=== PATIENT | male | born 1970 | race Caucasian/White ===

== ENCOUNTER → 2020-09-12 13:09 | Outpatient (BNVA) | payer MEDICAID, SELFPAY | PROVIDERS: PCP Internal Medicine Geriatric Medicine; Visit Provider Physician Assistant ==

== ENCOUNTER 2022-04-01 12:46 | Outpatient (REF) | payer MEDICAID, SELFPAY ==
--- NOTE | ~2022-04-01 | XR_ITS ---
EXAMINATION: XR LUMBOSACRAL SPINE CLINICAL INFORMATION: Lumbago with sciatica right side. COMPARISON: None TECHNIQUE: Three views of the lumbosacral spine. FINDINGS: The heights of the lumbar vertebrae are normal. The alignments are normal. Endplate osteophyte formation, endplate sclerosis, consistent with moderate spondylosis related changes are noted at L2-3. The posterior appendages are intact. The paraspinal soft tissues are unremarkable. XR/XR lumbar spine 2-3V IMPRESSION: Moderate spondylosis at L2-3.
== END 2022-04-01 12:47 | disposition home or self-care (01) ==
LOC: HO.LAB 12:46
PROVIDERS: PCP Internal Medicine Geriatric Medicine; Visit Provider Nurse Practitioner Family
DX: M54.41 Lumbago with sciatica, right side (principal)
CPT/HCPCS: 72100

== ENCOUNTER 2024-04-30 12:31 | Outpatient (REF) | payer MEDICAID, SELFPAY ==
[2024-04-30 13:24] LABS: MANUAL DIFF FLAG NO
[2024-04-30 13:31] LABS: Basophils Absolute Auto 0.1 X10*3/uL (0.0-0.2); Basophils Percent Auto 0.9 % (0-2); Eosinophils Absolute Auto 0.1 X10*3/uL (0.0-0.4); Eosinophils Percent Auto 0.9 % (0-4); Hematocrit 41.2 % (42.0-52.0); Hemoglobin 13.3 g/dl (14.0-18.0); Imm Gran Abs Auto 0.01 X10*3/uL (0.00-0.03); Imm Gran Pct Auto 0.2 % (0.0-0.4); Lymphocytes Absolute Auto 1.5 X10*3/uL (1.2-4.9); Lymphocytes Percent Auto 28.1 % (20-40); Mean Corpuscular HGB Conc 32.3 g/dl (31.0-36.0); Mean Corpuscular Hemoglobin 30.4 pg (27.0-33.0); Mean Corpuscular Volume 94.1 fL (80.0-98.0); Mean Platelet Volume 10.4 fL (9.4-12.4); Monocytes Absolute Auto 0.5 X10*3/uL (0.1-1.2); Monocytes Percent Auto 9.4 % (2-11); Neutrophils Absolute Auto 3.3 x10*3/uL (2.0-8.3); Neutrophils Percent Auto 60.5 % (45-73); Platelet Count 210 X10*3/uL (160-400); Red Blood Count 4.38 X10*6/uL (4.60-5.80); Red Cell Distribution Width 13.8 % (11.0-16.0); White Blood Count 5.4 X10*3/uL (4.8-10.8)
[2024-04-30 14:39] LABS: Alanine Aminotransferase 29 U/L (0-40); Albumin Level 4.2 g/dL (3.5-5.0); Alkaline Phosphatase 70 U/L (39-117); Anion Gap 10 (12-20); Aspartate Amino Transferase 30 U/L (5-37); Bilirubin Total 0.2 mg/dL (0.0-1.0); Blood Urea Nitrogen 18 mg/dL (9-16); Calcium 9.6 mg/dL (8.4-10.2); Carbon Dioxide 25 mmol/L (22-29); Chloride 109 mmol/L (96-108); Estimated Glomerular Filt Rate > 60; Glucose Random 94 mg/dL (60-115); Potassium 4.3 mmol/L (3.3-5.1); Sodium 140 mmol/L (135-145); TSH reflex Free T4 1.02 uIU/mL (0.32-4.0); Total Protein 7.6 g/dL (6.5-8.0)
[2024-05-01 07:51] LABS: HBc Num1 5.38 S/CO (0.00-0.79); HIV AB/AG Nonreactive (Nonreactive); HIV Num 1 0.07 S/CO (0.00-0.99); Hepatitis B Surface Antigen Negative (Negative); ~HepC Num1 14.29 S/CO (0.00-0.79); ~Hepatitis B Surface Antibody REACTIVE (Nonreactive); ~Hepatitis C Antibody Reactive (Nonreactive)
[2024-05-01 08:34] LABS: HBc Num2 5.47 S/CO
[2024-05-01 08:35] LABS: HBc Num3 5.64 S/CO; Hepatitis B Core Antibody Reactive (Nonreactive)
[2024-05-03 12:39] LABS: RPR Rapid Plasma Reagin NON-REACTIVE (NON-REACTIVE)
[2024-05-05 13:18] LABS: HCV Log PCR <1.18 NOT DETECTED Log IU/mL (NOT DETECTED); HepC Viral Load <15 NOT DETECTED IU/mL (NOT DETECTED)
== END 2024-04-30 12:32 | disposition home or self-care (01) ==
LOC: HO.HHCL 12:31
PROVIDERS: Visit Provider General Practice
DX: R10.12 Left upper quadrant pain (principal)
CPT/HCPCS: 36415; 80053; 84443; 85025; 86592; 86704; 86706; 86803; 87340; 87389; 87522

== ENCOUNTER 2024-10-15 11:16 | Outpatient (REF) | payer MEDICAID, SELFPAY ==
--- OUTSIDE RECORDS SUMMARY | 2024-10-15 12:23 | XMS_ITS | Encounter Summary ---
Author Organization [employer] Address [address] [facility] [address] [place] [address] Care Team Providers Care Aquatic Centre Manager Name Role Phone Name, Carlo KHAN Primary Care Provider [phone] Reason for Visit * Reason Onset Date Comments Nurse Triage 04/12/2024 Encounter Details Date Type Department Care Team (Late st Contact Info) Description 04/12/2024 Telephone [facility] MED[facility] [address] [place], [place] [phone] Name, MD Carlo [address] [place] [address] Nurse Triage Social History Tobacco Use Types Packs/Day Years Used Date Smoking Tobacco: Never Assessed Sex and Gender Information Value Date Recorded Sex Assigned at Male 06/24/2022 10:17 AM EDT Legal Sex Male 10:17 AM EDT Gender Identity Male 06/24/2022 10:17 AM EDT Sexual Orientation Choose not to disclose 2021 10:17 AM EDT documented as of this encounter Miscellaneous Notes * Telephone Encounter - Tash Gudino RN - 04/12/2024 4:15 PM EDT Triage call Pt reports chronic left sided abdominal pain under the rib area. Pt reports it went away for awhile and now it has come back and is on and off. Pt denies vomiting, fever, constipation, blood in urine, heart burn. Pt reports is in the methadone clinic and is trying to get finished with that. Pt reports , I'm scared that this pain coming back is from all the hard living I did before. Pt also reports that there is some numbness in right leg from foot to knee which comes and goes . Pt reports has changed diet eats fresh fruits and vegetables. Drinks adequate liquids but, did drink a couple of beers the other night and didn't feel well after. Pt is given ASK apt with INTERACTIVE MEDIA DIRECTOR Felipe 04/19/24 @ 100pm . Pt agrees with this disposition and will go to the ED if these symptoms become worse prior to scheduled apt. Home care reviewed. Insurance is verified as active prior to booking. Protocol Used: Abdominal Pain - Male (Adult) Protocol-Based Disposition: Home Care Positive Triage Question: * Mild abdominal pain * All higher-acuity triage questions were negative Care Advice Discussed: * Reassurance and Education - Stomach Pain * Rest * Drink Clear Fluids * Diet * Pass a Stool * Avoid Aspirin and NSAIDs * Expected Course - Abdomen Pain * Reasons To Call Back - Severe pain lasts over 1 hour - Intermittent pains (e.g., comes and goes, cramps) lasts over 48 hours - You become worse * Telephone Encounter - Cash Shelby - 04/12/2024 3:26 PM EDT Symptom: Abdominal Pain - Male Outcome: Schedule an urgent appointment (within 4 hours) or talk to a nurse or provider soon Reason: Getting worse The caller accepted this outcome documented in this encounter Plan of Treatment Upcoming Encounters Date Type Department Care Team (Late st Contact Info) Description 11/02/2024 1:30 PM EDT Office Visit [facility] ADULT DENTAL [address] [place] [address] Ilir Reed DDS [address] [place] [address] 12/24/2024 11:00 AM EDT Office Visit [facility] MED[facility]INE [address] [place] [address] Carlo Rawls MD [address] [place] [address] documented as of this encounter Visit Diagnoses Not on filedocumented in this encounter Care Teams Aquatic Centre Manager Relationship Specialty Start Date End Date NameCarlo MD [address] [place] [phone] PCP - General Family Medicine 12/12/15 documented as of this encounter
--- OUTSIDE RECORDS SUMMARY | 2024-10-15 12:24 | XMS_ITS | Encounter Summary ---
Author Organization [employer] Address [address] [place] [address] [address] [place] [address] Care Team Providers Care Embroiderer Name Role Phone Name, Carlo KHAN Primary Care Provider [phone] Reason for Visit * Reason Comments Extraction #18 Encounter Details Date Type Department Care Team (Late st Contact Info) Description 09/17/2024 2:30 PM EST Office Visit [facility] ADULT DENTAL [address] [place] [address] Ilir Reed DDS [address] [place], [place] [phone] Chronic right-sided low back pain with right-sided sciatica Social History Tobacco Use Types Packs/Day Years Used Date Smoking Tobacco: Never Smokeless Tobacco: Never Alcohol Use Standard Drinks/Week Comments Never 0 (1 standard drink = 0.6 oz pur e alcohol) Sex and Gender Information Value Date Recorded Sex Assigned at Male 06/24/2022 10:17 AM EDT Legal Sex Male 10:17 AM EDT Gender Identity Male 06/24/2022 10:17 AM EDT Sexual Orientation Choose not to disclose 2021 10:17 AM EDT documented as of this encounter Last Filed Vital Signs Vital Sign Reading Time Taken Comments Blood Pressure 132/72 09/17/2024 2:41 PM EST Pulse - - Temperature - - Respiratory Rate - - Oxygen Saturation - - Inhaled Oxygen Concentration - - Weight - - Height - - Body Mass Index - - documented in this encounter Progress Notes * Ilir Reed DDS - 09/17/2024 2:30 PM EST Patient ID: Gucci Sanchez is a 53 y.o. male. Time Out: No data recorded Location: [facility] Tooth: #18 Procedure: Extraction Verified the above with patient, phlebotomist medical lab assistant, and provider. Confirmed via patient's chart, intraorally and by radiographs. Machine Stamper: not applicable Chief Complaint Patient presents with Extraction #18 Medical Hx: Vitals: Blood pressure 132/72. Past Medical History: Diagnosis Date Asthma Hepatitis C Medications: Outpatient Encounter Medications as of 09/17/2024 Medication Sig Dispense Refill albuterol (2.5 MG/3ML) 0.083% nebulizer solution INHALE 1 VIAL VIA NEBULIZER 3 TIMES A DAY 90 mL 2 albuterol (Ventolin HFA) 108 (90 Base) MCG/ACT inhaler INHALE 2 PUFFS INTO THE LUNGS EVERY 4 TO 6 HOURS NEEDED. 18 g 1 albuterol 108 (90 Base) MCG/ACT inhaler Inhale 2 puffs every 6 (six) hours if needed for wheezing. 18 g 11 [DISCONTINUED] ibuprofen 800 MG tablet Take 1 tablet (800 mg) by mouth every 8 (eight) hours if needed for mild pain or moderate pain. 30 tablet 1 amoxicillin (Amoxil) 500 MG capsule Take 1 capsule (500 mg) by mouth every 8 (eight) hours for 7 days. 21 capsule 0 [] cyclobenzaprine (Flexeril) 5 MG tablet Take 1 tablet (5 mg) by mouth if needed in the morning, at noon, and at bedtime for muscle spasms for up to 10 days. 30 tablet 0 ibuprofen 600 MG tablet Take 1 tablet (600 mg) by mouth 3 times daily for 7 days. 21 tablet 0 methadone (Methadose) 10 MG/ML solution 41 mg. naproxen (Naprosyn) 500 MG tablet Take 500 mg by mouth if needed in the morning and at bedtime. No facility-administered encounter medications on file as of 09/17/2024. Consent Obtained: The risks, benefits, indications, potential complications, and alternatives were explained to the patient and informed consent was obtained with good understanding. Treatment Provided: Dental procedures in this visit D7140 - EXTRACTION, ERUPTED TOOTH OR EXPOSED ROOT (ELEVATION AND/OR FORCEPS REMOVAL) 18 (Completed) Service provider: Ilir Reed DDS Billing provider: Ilir Reed DDS [id number] - ADJUNCTIVE GENERAL SERVICES - PROFESSIONAL VISITS - CASE PRESENTATION, SUBSEQUENT TO DETAILED AND EXTENSIVE TREATMENT PLANNING (Completed) Service provider: Ilir Reed DDS Billing provider: Ilir Reed DDS Diagnosis: Periodontal abscess Topical: 20% Benzocaine Anesthesia: 2% Lidocaine (Xylocaine) w/ 1:100,000 epinephrine Number of Cartridges: 1 Injection Type: Inferior alveolar nerve block and Long buccal nerve block Confirmed profound anesthesia. Pharyngeal curtain and bite block placed. Removed tooth with elevators and forceps. Apices intact. Surgical Extraction: N/A Socket curetted & irrigated with sterile water. Compressed alveolar bone. Sutures: None Needed All adjacent teeth intact. Hemostasis achieved. Complications: None Written and verbal post-op instructions given. Patient discharged in stable condition; ambulatory, alert, and oriented. A white patch was observed on the buccal mucosa adjacent to the left maxillary molars. Given the patient's history of smoking, a referral was made to Dr. Palomino for further evaluation. Patient was insistent on taking his extracted tooth with him after the procedure. It was explained to the patient that clinic policies, based on OSHA regulations, classify extractedteeth as potentially infectious material and, in this case, as medical waste due to the presence ofan amalgam (mercury) filling. Despite this explanation, the patient expressed dissatisfaction and left the operatory upset. At the front end application developer, the patient expressed mixed feedback about his visit. While he appreciated the care provided, he stated he was unhappy about not being allowed to take the extracted tooth. He mentioned that had he known this policy beforehand, he would have opted to go to another dental office that permits patients to keep their extracted teeth. Shortly after leaving, the patient called the office and was transferred to ne. During our phone conversation, he continued to express frustration, insisting that the tooth was his body part and thatwe had no right to keep it. I apologized for the inconvenience and explained that our policy, guided by OSHA regulations, prevents us from releasing extracted teeth, especially those containing mercury, as they are classified as medical waste. After a lengthy discussion, the patient eventually acknowledged our reasoning but remained upset. He stated he would not return to our office for future extractions due to this experience. The patient was provided with a clear explanation of the policy and regulations regarding extracted teeth. Apologies were extended to the patient to address his dissatisfaction. Verbal acknowledgment of understanding was obtained, though the patient remained unhappy. NV: Exam Multiple Cut Off Saw Operator: Mami Colin Dentist: Ilir Reed DDS documented in this encounter Plan of Treatment Upcoming Encounters Date Type Department Care Team (Late st Contact Info) Description 11/02/2024 1:30 PM EDT Office Visit [facility] ADULT DENTAL [address] [place] [phone] Ilir Reed DDS [address] [place] [address] 12/24/2024 11:00 AM EDT Office Visit [facility] MEDICINE [address] [place] [phone] Name, MD Carlo [address] [place] [phone] Scheduled Orders Name Type Priority Associated Diagnoses Orde r Schedule COMPREHENSIVE ORAL EVALUATION - NEW OR ESTABLISHED PATIENT Dental Routine 1 Occurrence s starting 09/17/2024 DIAGNOSTIC - DIAGNOSTIC IMAGING - INTRAORAL - COMPREHENSIVE SERIES OF RADIOGRAPHIC IMAGES Dental Routine 1 Occurrence s starting 09/17/2024 UL UL PERIODONTAL SCALING AND ROOT PLANING - 1 TO 3 TEETH PER QUADRANT Dental Routine 1 Occurrences starting 09/17/2024 UR UR PERIODONTAL SCALING AND ROOT PLANING - 1 TO 3 TEETH PER QUADRANT Dental Routine 1 Occurrences starting 09/17/2024 LL LL PERIODONTAL SCALING AND ROOT PLANING - 1 TO 3 TEETH PER QUADRANT Dental Routine 1 Occurrences starting 09/17/2024 LR LR PERIODONTAL SCALING AND ROOT PLANING - 1 TO 3 TEETH PER QUADRANT Dental Routine 1 Occurrences starting 09/17/2024 documented as of this encounter Procedures Procedure Name Priority Date/Time Associated Diagnosis Comments 18 EXTRACTION, ERUPTED TOOTH OR EXPOSED ROOT (ELEVATION/FORCEPS REMOVAL) Routine 09/17/2024 2:30 PM EST CASE PRESENTATION, DETAILED AND EXTENSIVE TREATMENT PLANNING Routine 09/17/2024 2:30 PM EST documented in this encounter Visit Diagnoses Diagnosis Chronic right-sided low back pain with right-sided sciatica documented in this encounter Care Teams Embroiderer Relationship Specialty Start Date End Date Name, MD Carlo [address] [place] [phone] PCP - General Family Medicine 12/12/15 documented as of this encounter
--- OUTSIDE RECORDS SUMMARY | 2024-10-15 12:24 | XMS_ITS | Clinical Summary ---
Author Organization [facility] Address [address] [place] [address] Phone Care Team Providers Care Manager Clinic Name Role Phone Name, Carlo KHAN Primary Care Provider [phone] Allergies No known active allergies Medications albuterol HFA (PROAIR HFA ; PROVENTIL HFA ; VENTOLIN HFA) 90 mcg/actuation inhaler Inhale 2 puffs by mouth every 6 (six) hours if needed for wheezing. Active dexAMETHasone (DECADRON) 4 mg tablet Take 1 tablet (4 mg total) by mouth 2 (two) times a day for 10 days. 20 each 08/05/2024 Active methocarbamoL (ROBAXIN) 750 mg tablet Take 1 tablet (750 mg total) by mouth 4 (four) times a day for 10 days. 40 each 08/05/2024 Active Encounters Date Type Department Care Team Description 08/05/2024 8:23 AM EST - 08/05/2024 11:01 AM EST Emergency [facility] Emergency [address] [place] [address] Acute right lumbar radiculopathy (Primary Dx) Discharge Disposition: Home or Self Care from Last 3 Months Social History Tobacco Use Types Packs/Day Years Used Date Smoking Tobacco: Some Days Cigarettes Smokeless Tobacco: Never Tobacco Cessation:Ready to Q uit: Not Asked; Counseling Given: Not Answered Alcohol Use Standard Drinks/Week Comments Never 0 (1 standard drink = 0.6 oz pur e alcohol) Sex and Gender Information Value Date Recorded Sex Assigned at Male 08/05/2024 9:22 AM EST Legal Sex Male 12:19 AM EST Gender Identity Male 08/05/2024 9:22 AM EST Sexual Orientation Straight 08/05/2024 9: 22 AM EST Obstetrics History Last Filed Vital Signs Vital Sign Reading Time Taken Comments Blood Pressure 134/69 08/05/2024 7:34 AM EST keeps moving d/t pain Pulse 55 08/05/2024 7:34 AM EST Temperature 36.5 ??C (97.7 ??F) 08/05/2024 7 :34 AM EST Respiratory Rate 18 08/05/2024 7:34 AM EST Oxygen Saturation 99% 08/05/2024 7:3 4 AM EST Inhaled Oxygen Concentration - - Weight 74.8 kg (165 lb) 08/05/2024 7:34 AM EST Height 182.9 cm (6') 08/05/2024 7:34 AM EST Body Mass Index 22.38 08/05/2024 7:34 AM EST Plan of Treatment Health Maintenance Due Date Last Done Comments Hepatitis A Vaccines (1 of 2 - Risk 2-dose series) 1989 Hepatitis B Vaccines (1 of 3 - 19+ 3-dose series) 1989 Pneumococcal Vaccine: 50+ Years (1 of 2 - PCV) 1989 Pneumococcal Vaccine: Pediatrics (0 to 5 Years) and At-Risk Patients (6 to 64 Years) (1 of 2 - PCV) 1989 Zoster Vaccines (1 of 2) 2020 Colorectal Cancer Screening: Colonoscopy 09/23/2023 Depression Screening 09/23/2023 Social Influencers of Health Screening 09/23/2023 COVID-19 Vaccine (1 - 2023-2 5 season) 2024 Influenza Vaccine (#1) 2024 07/29/2013 Cholesterol Screening (Lipid Panel) 11/23/2027 11/22/2022 DTaP,Tdap,and Td Vaccines (3 - Td or Tdap) 06/17/2034 06/17/2024, 07/29/2013 MMR Vaccines Aged Out 11/24/2003 No longer eligi ble based on patient's age to complete this topic HIV Screening Completed 04/30/2024 Hepatitis C Screening Completed 04/30/2024 HIB Vaccines Aged Out No longer eligi ble based on patient's age to complete this topic HPV Vaccines Aged Out No longer eligi ble based on patient's age to complete this topic IPV Vaccines Aged Out No longer eligi ble based on patient's age to complete this topic Meningococcal ACWY Vaccine Aged Out N o longer eligible based on patient's age to complete this topic Meningococcal B Vacine Aged Out No lo nger eligible based on patient's age to complete this topic RSV Immunization Patients Under 20 months Aged Out No longer eligible b ased on patient's age to complete this topic Varicella Vaccines Aged Out No longer eligible based on patient's age to complete this topic Procedures Procedure Name Priority Date/Time Associated Diagnosis Comments XR LUMBAR SPINE 2-3 VIEWS STAT 08/05/2024 8:21 AM EST from Last 3 Months Results * XR Lumbar Spine 2-3 Views (08/05/2024 8:21 AM EST) Anatomical Region Laterality Modality Spine, L-spine Radiographic Brianna ging 08/05/2024 8:23 AM EST Impressions 08/05/2024 8:23 AM EST No acute deformity. ??Alignment is maintained. ??Mild degenerative changes are noted throughout the spine. ??Degenerative changes of the posterior facets. -------- FINAL REPORT -------- Dictated By: Waqar Pinto Dictated Date: 08/05/2024 08:23 ET Assigned Physician: Waqar Pinto Reviewed and Electronically Signed By: Waqar Pinto Signed Date: 08/05/2024 08:23 ET Workstation ID: [id number] Transcribed By: Self Edit Transcribed Date: 08/05/2024 08:23 ET Narrative 08/05/2024 8:23 AM EST PROCEDURE: XR LUMBAR SPINE 2-3 VIEWS INDICATION: pain COMPARISON: None Procedure Note Waqar Pinto MD - 08/05/2024 PROCEDURE: XR LUMBAR SPINE 2-3 VIEWS INDICATION: pain COMPARISON: None IMPRESSION: No acute deformity. Alignment is maintained. Mild degenerative changesare noted throughout the spine. Degenerative changes of the posteriorfacets. -------- FINAL REPORT -------- Dictated By: Waqar Pinto Dictated Date: 08/05/2024 08:23 ET Assigned Physician: Waqar Pinto Reviewed and Electronically Signed By: Waqar Pinto Signed Date: 08/05/2024 08:23 ET Workstation ID: [id number] Transcribed By: Self Edit Transcribed Date: 08/05/2024 08:23 ET us Stuart Roberson DO IMG XR PROCEDURES Final Res ult from Last 3 Months Insurance MEDICAID - [place] Care Teams Manager Clinic Relationship Specialty Start Date End Date Name, MD Carlo [address] [place] [phone] PCP - General Internal Medicine 08/05/24
--- OUTSIDE RECORDS SUMMARY | 2024-10-15 12:24 | XMS_ITS | Encounter Summary ---
Author Organization [employer] Address [address] [facility] [address] [place] [address] Care Team Providers Care Branch Operation Evaluation Manager Name Role Phone Carlo Rawls MD Primary Care Provider [phone] Reason for Referral * Neurology (Routine) - Authorized Specialty Diagnoses / Procedures Referred By Contac t Referred To Contact Diagnoses Radicular syndrome of right leg Procedures Nerve conduction test NameCarlo MD [address] [place] [address] Phone: tel: fax: [address] Phone: tel: fax: Referral ID Status Reason Start Date Expiration Date V isits Requested Visits Authorized [id number] Authorized 10/01/2024 10/01/2025 1 1 Reason for Visit * Reason Comments Annual Exam Encounter Details Date Type Department Care Team (Late st Contact Info) Description 10/01/2024 10:30 AM EST Office Visit [facility] MEDICINE [address] [place] [address] Carlo Rawls MD [address] [place] [address] Weight loss (Primary Dx); Tobacco dependence syndrome; Radicular syndrome of right leg Social History Tobacco Use Types Packs/Day Years Used Date Smoking Tobacco: Former Cigarettes Smokeless Tobacco: Never Tobacco Cessation:Counseling Given: Not Answered Alcohol Use Standard Drinks/Week Comments Never 0 (1 standard drink = 0.6 oz pur e alcohol) Depression Answer Date Recorded Patient Health Questionnaire-9 Score 9 10/01/2024 Patient Health Questionnaire-9 Score 9 10/01/2024 Last PHQ-9: Questionnaire Data Not on file 0 10/01/2024 Housing Stability Answer Date Recorded What is your housing situation today? I have mickey gallego 10/01/[address] you li ve. Do you have problems with any of the following? None of the above 10/01/2024 Food Insecurity Answer Date Recorded Within the past 12 months, y ou worried that your food would run out before you got money to buy more: Never True 10/01/2024 Within the past 12 months,th e food you bought just didn't last and you didn't have enough money to get more: Never True 02/2025 Transportation Answer Date Recorded In the past 12 months, has l ack of transportation kept you from medical appts, meetings, work or from getting things needed for daily living? No 10/01/2024 Utilities Answer Date Recorded In the past 12 months, has t he electric, gas, oil or water company threatened to shut off services in your home? No 10/01/2024 Depression Answer Date Recorded Patient Health Questionnaire-2 Score 4 10/01/2024 Internet Access Answer Date Recorded Internet Access Q1 No 10/01/2024 Internet Access Q2 I do not want or need it 02/2025 Sex and Gender Information Value Date Recorded Sex Assigned at Male 06/24/2022 10:17 AM EDT Legal Sex Male 10:17 AM EDT Gender Identity Male 06/24/2022 10:17 AM EDT Sexual Orientation Choose not to disclose 2021 10:17 AM EDT documented as of this encounter Last Filed Vital Signs Vital Sign Reading Time Taken Comments Blood Pressure 137/83 10/01/2024 10:34 AM EST Pulse 61 10/01/2024 10:34 AM EST Temperature 35.8 ??C (96.4 ??F) 10/01/2024 10:[address] Respiratory Rate 20 10/01/2024 10:34 AM EST Oxygen Saturation 98% 10/01/2024 10:34 AM EST Inhaled Oxygen Concentration - - Weight 74.4 kg (164 lb) 10/01/2024 10:34 AM EST Height 182.9 cm (6') 10/01/2024 10:34 AM EST Body Mass Index 22.24 10/01/2024 10:34 AM EST documented in this encounter Progress Notes * Carlo Rawls, - 10/01/2024 10:30 AM EST Subjective Patient ID: Gucci Sanchez is a 53 y.o. male who presents for Follow-up. Gucci is returning to medical care. I have not seen him in a couple of years. The patient continueson treatment with methadone and he smokes cigarettes. He denies use of alcohol or illicits. Today he is concerned about weight loss. The patient is 164 pounds. His weight is stable compared to his previous visit last year. He used to be 190 pounds about 3 years ago. The patient explains to me that he has changed his diet. He tries to avoid processed foods. He tries to eat organic foods but admitsthat is difficult because it is quite expensive. The patient tells me that he is having several months of low back pain with radiation to the right leg. He describes associated pain, paresthesias, numbness of the right leg and right foot. He does not have any recent trauma to the low back. No associated GI or complaints. No recent use of IVDA.No fevers or chills. No history of malignancy. Review of Systems Constitutional: Positive for unexpected weight change. Negative for chills, fatigue and fever. HENT: Negative for sore throat. Respiratory: Negative for cough, chest tightness and shortness of breath. Cardiovascular: Negative for chest pain, palpitations and leg swelling. Gastrointestinal: Negative for abdominal pain and blood in stool. Musculoskeletal: Positive for back pain. Visit Vitals BP 137/83 (BP Location: Left arm, Patient Position: Sitting, BP Cuff Size: Adult) Pulse 61 Temp 96.4 ??F (35.8 ??C) (Temporal) Resp 20 Ht 6' (1.829 m) Wt 164 lb (74.4 kg) SpO2 98% BMI 22.24 kg/m?? Smoking Status Former BSA 1.94 m?? Objective Physical Exam Constitutional: Appearance: Normal appearance. Cardiovascular: Rate and Rhythm: Normal rate and regular rhythm. Heart sounds: No murmur heard. Pulmonary: Effort: Pulmonary effort is normal. No respiratory distress. Breath sounds: No wheezing, rhonchi or rales. Abdominal: Palpations: Abdomen is soft. Tenderness: There is no abdominal tenderness. Musculoskeletal: Right lower leg: No edema. Left lower leg: No edema. Neurological: General: No focal deficit present. Mental Status: He is alert. Motor: No weakness. Assessment/Plan Diagnoses and all orders for this visit: Weight loss Comments: I recommended evaluation with testing listed below. Including blood work and chest x-ray. Orders: - CBC auto differential; Future - Comprehensive Metabolic Panel; Future - TSH W/Reflex to FT4; Future - HIV-1/2 Antigen and Antibodies, Fourth Generation, with Reflexes; Future - Hepatitis C Viral RNA, Quantitative, Real-Time PCR; Future - XR Chest 2 Views; Future Tobacco dependence syndrome Comments: See above Orders: - XR Chest 2 Views; Future Radicular syndrome of right leg Comments: I recommended 100 mg gabapentin at bedtime. Check nerve conduction study. Orders: - Nerve conduction test; Future Other orders - gabapentin (Neurontin) 100 MG capsule; Take 1 capsule (100 mg) by mouth at bedtime. documented in this encounter Plan of Treatment Upcoming Encounters Date Type Department Care Team (Late st Contact Info) Description 11/02/2024 1:30 PM EDT Office Visit [facility] ADULT DENTAL [address] [place] [address] Ilir Reed DDS [address] [place] [address] 12/24/2024 11:00 AM EDT Office Visit [facility] MEDICINE [address] [place] [address] Carlo Rawls MD [address] [place] [address] Scheduled Orders Name Type Priority Associated Diagnoses Orde r Schedule CBC auto differential Lab Routine Weight loss Expected: 10/01/2024 (Approximate), Expires: 10/01/2025 Comprehensive Metabolic Panel Lab Routine Weight loss Expected: 10/01/2024 (Approximate), Expires: 10/01/2025 TSH W/Reflex to FT4 Lab Routine Weight loss Expected: 10/01/2024 (Approximate), Expires: 10/01/2025 HIV-1/2 Antigen and Antibodies, Fourth Generation, with Reflexes Lab Routine Weight loss Expected: 10/01/2024 (Approximate), Expires: 10/01/2025 Hepatitis C Viral RNA, Quantitative, Real-Time PCR Lab Routine Weight loss Expected: 10/01/2024 (Approximate), Expires: 10/01/2025 Nerve conduction test Neurology Routine Radicular syndrome of right leg Expected: 10/01/2024 (Approximate), Expires: 10/01/2025 XR Chest 2 Views Imaging Routine Weight loss Tobacco dependence syndrome Expected: 10/01/2024, Expires: 10/01/2025 documented as of this encounter Visit Diagnoses Diagnosis Weight loss- Primary Loss of weight Tobacco dependence syndrome Tobacco use disorder Radicular syndrome of right leg documented in this encounter Additional Health Concerns Assessment Noted Time PHQ-9 Depression Total Score: 9 10/01/19 25 10:43 AM EST documented as of this encounter Care Teams Branch Operation Evaluation Manager Relationship Specialty Start Date End Date Name, MD Carlo [address] [place] [address] PCP - General Family Medicine 12/12/15 documented as of this encounter
--- OUTSIDE RECORDS SUMMARY | 2024-10-15 12:24 | XMS_ITS | Encounter Summary ---
Author Organization [employer] Address [address] [place] [address] [address] [place] [address] Care Team Providers Care Retail Custodial Associate Name Role Phone Name, Carlo KHAN Primary Care Provider [phone] Reason for Visit * Reason Comments Consult Encounter Details Date Type Department Care Team (Late st Contact Info) Description 09/29/2024 11:00 AM EST Office Visit 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 ADULT DENTAL [address] [place] [address] Ilir Reed DDS [address] [place] [address] 12/24/2024 11:00 AM EDT Office Visit [facility] MEDICINE [address] [place] [address] NameCarlo MD [address] [place] [phone] documented as of this encounter Procedures Procedure Name Priority Date/Time Associated Diagnosis Comments CONSULTATION - DIAGNOSTIC SERVICE PROVIDED BY DENTIST OR PHYSICIAN OTHER THAN REQUESTING DENTIST OR PHYSICIAN Routine 09/29/2024 11:00 AM EST documented in this encounter Visit Diagnoses Not on filedocumented in this encounter Care Teams Retail Custodial Associate Relationship Specialty Start Date End Date Carlo Rawls MD [address] [place] [phone] PCP - General Family Medicine 12/12/15 documented as of this encounter
--- OUTSIDE RECORDS SUMMARY | 2024-10-15 12:24 | XMS_ITS | Encounter Summary ---
Author Organization [employer] Address [address] [place] [address] [address] [place] [address] Care Team Providers Care Pipe Recovery Specialist Name Role Phone Name, Carlo KHAN Primary Care Provider [phone] Reason for Visit * Reason Onset Date Comments Medication Question 02/17/2024 Encounter Details Date Type Department Care Team ([facility] st Contact Info) Description 02/17/2024 Telephone [facility] MEDICINE [address] [place], [place] [phone] Name, MD Carlo [address] [place], [place] [phone] Medication Question Social History Tobacco Use Types Packs/Day Years Used Date Smoking Tobacco: Never Assessed Sex and Gender Information Value Date Recorded Sex Assigned at Male 06/24/2022 10:17 AM EDT Legal Sex Male 10:17 AM EDT Gender Identity Male 06/24/2022 10:17 AM EDT Sexual Orientation Choose not to disclose 2021 10:17 AM EDT documented as of this encounter Miscellaneous Notes * Telephone Encounter - Maritza Dennison RN - 02/17/2024 4:46 PM EDT T/C to pt. For below message, No answer. LVM to call back on [phone]. * Telephone Encounter - Eliot Pearce - 02/17/2024 3:32 PM EDT Tc from pt is requesting albuterol nebulizer solution for machine due to some recent concerns. Please contact pt at [phone]. documented in this encounter Plan of Treatment Upcoming Encounters Date Type Department Care Team (Late st Contact Info) Description 11/02/2024 1:30 PM EDT Office Visit [facility] ADULT DENTAL [address] [place] [address] Ilir Reed DDS [address] [place] [address] 12/24/2024 11:00 AM EDT Office Visit [facility] MED[facility]INE [address] [place] [address] Name, MD Carlo [address] [place] [address] documented as of this encounter Visit Diagnoses Not on filedocumented in this encounter Care Teams Pipe Recovery Specialist Relationship Specialty Start Date End Date Name, MD Carlo [address] [place] [address] PCP - General Family Medicine 12/12/15 documented as of this encounter
--- OUTSIDE RECORDS SUMMARY | 2024-10-15 12:24 | XMS_ITS | Encounter Summary ---
Author Organization [employer] Address [address] [facility] [address] [place] [address] Care Team Providers Care Security And Compliance Analyst Name Role Phone Name, Carlo KHAN Primary Care Provider [phone] Reason for Visit * Reason Onset Date Comments Chart Prep 09/30/2024 Encounter Details Date Type Department Care Team (Late st Contact Info) Description 09/30/2024 Telephone [facility] [address] [place], [place] [phone] Name, MD Carlo [address] [place] [address] Chart Prep Social History Tobacco Use Types Packs/Day Years [...] encounter Miscellaneous Notes * Telephone Encounter - Meron Nur MA - 09/30/2024 2:42 PM EST Chart Prep Labs: done Images: done Vaccines due: Covid Due, Hep A Due, Hep B Due, PCV20 Due, Flu Due, and Shingles in pharmacy Due Referrals: Completed Screenings: Colonoscopy Overdue care gaps: Sbirt, SDOH, and PHQ-9 documented in this encounter Plan of Treatment Upcoming Encounters Date Type Department Care Team (Late st Contact Info) Description 11/02/2024 1:30 PM EDT Office Visit [facility] ADULT DENTAL [address] [place] [address] Ilir Reed DDS [address] [place] [address] 12/24/2024 11:00 AM EDT Office Visit [facility] MEDICINE [address] [place] [phone] NameCarlo MD [address] [place] [phone] documented as of this encounter Visit Diagnoses Not on filedocumented in this encounter Care Teams Security And Compliance Analyst Relationship Specialty Start Date End Date Name, MD Carlo [address] [place] [phone] PCP - General Family Medicine 12/12/15 documented as of this encounter
--- OUTSIDE RECORDS SUMMARY | 2024-10-15 12:24 | XMS_ITS | Clinical Summary ---
Author Organization [employer] Address [address] [place] [address] 7t [place] [address] Care Team Providers Care Machine Cloth Measurer Name Role Phone Name, Carlo KHAN Primary Care Provider [phone] Allergies No known active allergies Medications albuterol (2.5 MG/3ML) 0.083% nebulizer solution INHALE 1 VIAL VIA NEBULIZER 3 TIMES A DAY 90 mL 2 02/19/20 24 Active methadone (Methadose) 10 MG/ML solution 41 mg. 03/25/20 22 Active naproxen (Naprosyn) 500 MG tablet Take 500 mg by mouth if needed in the morning and at bedtime. 07/18/20 23 Active albuterol (Ventolin HFA) 108 (90 Base) MCG/ACT inhalerIndicati ons:Asthma, unspecified asthma severity, unspecified whether complicated, unspecified whether persistent INHALE 2 PUFFS INTO THE LUNGS EVERY 4 TO 6 HOURS NEEDED. 18 g 1 08/05/20 24 Active albuterol 108 (90 Base) MCG/ACT inhalerIndicati ons:Wheezing Inhale 2 puffs every 6 (six) hours if needed for wheezing. 18 g 11 09/03/19 25 026 Active gabapentin (Neurontin) 100 MG capsule Take 1 capsule (100 mg) by mouth at bedtime. 30 capsule 1 10/01/19 25 025 Active ibuprofen 800 MG tabletIndicatio ns:Chronic right-sided low back pain with right-sided sciatica Take 1 tablet (800 mg) by mouth every 8 (eight) hours if needed for mild pain or moderate pain. 30 tablet 1 09/03/19 25 025 Discontinued(Re order (will not trigger notification to Pharmacy)) amoxicillin (Amoxil) 500 MG capsule Take 1 capsule (500 mg) by mouth every 8 (eight) hours for 7 days. 21 capsule 09/17/19 025 ibuprofen 600 MG tabletIndicatio ns:Chronic right-sided low back pain with right-sided sciatica Take 1 tablet (600 mg) by mouth 3 times daily for 7 days. 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 09/18/2023 Panic attack 09/18/2023 09/18/2023 Generalized abdominal pain 04/25/201709/18 Left flank pain 07/31/2016 09/18/2023 Left upper quadrant pain 06/25/2016 024 Hepatitis C antibody test positive 10/14/2013 09/18/2023 Depressive disorder 07/29/2013 09/18/2023 Chronic low back pain 07/29/2013 09/18/2023 Substance abuse 07/29/2013 09/18/2023 Tobacco dependence syndrome 07/29/201308/26 Resolved Problems Problem Noted Date Diagnosed Date Resolved Date Acute severe exacerbation of asthma 09/18/202309/1804/19/2024 Asthma 07/29/2013 09/18/2023 04/19/2024 Encounters Date Type Department Care Team Description 10/14/2024 Telephone [facility] [address] [place] [address] Kayy Gould [place] November Recalls 10/01/2024 10:30 AM EST Office Visit [facility] [address] [place] [address] Carlo Rawls MD Weight loss (Primary Dx); Tobacco dependence syndrome; Radicular syndrome of right leg 09/30/2024 Telephone [facility] [address] [place], [place] [phone] Carlo Rawls MD Chart Prep 09/29/2024 11:00 AM EST Office Visit [facility] [address] [place] [address] Jewel Palomino DMD 09/20/2024 Patient Outreach [facility] [address] [place], [place] [phone] Cralo Rawls MD Pre-visit Planning (Pre visit planning LVM ) 09/17/2024 2:30 PM EST Office Visit [facility]ULT D[facility]AL [address] [place] [address] Ilir Reed, DDS Chronic right-sided low back pain with right-sided sciatica 09/03/2024 1:40 PM EST Office Visit [facility] [address] [place] [address] Harvey, Renetta, CARBIDE OPERATOR Chronic right-sided low back pain with right-sided sciatica (Primary Dx); Wheezing 09/03/2024 Orders Only [facility] [address] [place] [address] Jemima Joy, DDS 08/24/2024 12:30 PM EST Office Visit [facility] [address] [place] [address] Ilir Reed, DDS Pain of tooth on percussion (Primary Dx) 08/06/2024 Telephone [facility] [address] [place] [address] Brianna Mann, ESTEPHANIE 08/05/2024 Refill [facility] [address] [place] [phone] Lupe Fiore MD Asthma, unspecified asthma severity, unspecified whether complicated, unspecified whether persistent from Last 3 Months Immunizations Name Administration Dates Next Due Influenza, Split (incl. purified surface antigen ) 07/29/2013 MMR 11/24/2003 Tdap 07/29/2013 Social History Tobacco Use Types Packs/Day Years [...] not to disclose 2021 10:17 AM EDT Last Filed Vital Signs Vital Sign Reading [...] Mass Index 22.24 10/01/2024 10:34 AM EST Plan of Treatment Upcoming Encounters Date Type Department Care Team (Late st Contact Info) Description 11/02/2024 1:30 PM EDT Office Visit [facility] [address] [place] [address] Ilir Reed DDS [address] [place], [place] [phone] 12/24/2024 11:00 AM EDT Office Visit [facility] [address] [place], [place] [phone] Name, MD Carlo [address] [place], [place] [phone] Health Maintenance Due Date Last Done Comments CT Colonography 1970 Colonoscopy 1970 Colorectal Cancer Screening 1970 FIT DNA/Cologuard 1970 FIT 1970 FOBT 1970 Sigmoidoscopy 1970 Hepatitis A Vaccines (1 of 2 - Risk 2-dose series) 1989 Hepatitis B Vaccines (1 of 3 - 19+ 3-dose series) 1989 Pneumococcal Vaccine: 50+ Years (1 of 2 - PCV) 1989 Dental Oral Exam 10/24/2017 04/25/2017, , 06/29/2013 Zoster Vaccines (1 of 2) 2020 Dental Prophylaxis 10/04/2022 04/02/2022, 1 , 11/24/2009 Dental X-Ray: Bitewings 04/03/2023 04/02/20 22, 04/25/2017, 06/24/2013, Additional history exists COVID-19 Vaccine ( season) 2024 Influenza Vaccine (#1) 2024 07/29/2013 Depression Monitoring (PHQ-9) 03/31/2025 10/01/2024, 10/01/2024 Dental X-Ray: Full Mouth 04/03/2025 022, 04/25/2017, 06/24/2013, Additional history exists Alcohol/Substance Use Screening 10/01/2025 10/01/2024 Depression Screening 10/01/2025 10/01/2024, 10/01/19 25 SDOH Screening 10/01/2025 10/01/2024 Tobacco Screening 10/01/2025 10/01/2024 Lipid Panel 11/23/2027 11/22/2022 DTaP/Tdap/Td Vaccines (3 - Td or Tdap) 06/17/2034 06/17/2024, 07/29/2013 RSV Patients and Patients Aged 60 years or older (1 - 1-dose 75+ series) 2045 HIV Screening Completed 04/30/2024, 11/22/2022 Hepatitis C Screening Completed 04/30/2024 , 04/30/2024, 11/22/2022, Additional history exists HIB Vaccines Aged Out No longer eligi ble based on patient's age to complete this topic HPV Vaccines Aged Out No longer eligi ble based on patient's age to complete this topic IPV Vaccines Aged Out No longer eligi ble based on patient's age to complete this topic Meningococcal Vaccine Aged Out No leilani doni eligible based on patient's age to complete this topic RSV under 20 months Aged Out No longe r eligible based on patient's age to complete this topic Rotavirus Vaccines Aged Out No longer eligible based on patient's age to complete this topic Procedures Procedure Name Priority Date/Time Associated Diagnosis Comments CONSULTATION - DIAGNOSTIC SERVICE PROVIDED BY DENTIST OR PHYSICIAN OTHER THAN REQUESTING DENTIST OR PHYSICIAN Routine 09/29/2024 11:00 AM EST CASE PRESENTATION, DETAILED AND EXTENSIVE TREATMENT PLANNING Routine 09/17/2024 2:30 PM EST 18 EXTRACTION, ERUPTED TOOTH OR EXPOSED ROOT (ELEVATION/FORCEPS REMOVAL) Routine 09/17/2024 2:30 PM EST CASE PRESENTATION, DETAILED AND EXTENSIVE TREATMENT PLANNING Routine 08/24/2024 12:30 PM EST INTRAORAL - PERIAPICAL FIRST RADIOGRAPHIC IMAGE Routine 08/24/2024 12:30 PM EST PALLIATIVE (EMERGENCY) TREATMENT OF DENTAL PAIN - MINOR PROCEDURE Routine 08/24/2024 12:30 PM EST HEPATITIS C AB W/REFL TO HCV RNA, QN, PCR Routine 04/30/2024 12:40 PM EDT Left upper quadrant pain HIV 1/2 ANTIGEN/ANTIBODY, FOURTH GENERATION W/RFL Routine 04/30/2024 12:40 PM EDT Left upper quadrant pain LIPID PANEL, STANDARD Routine 11/22/2022 2:28 PM EDT PROPHYLAXIS - ADULT Routine 04/02/2022 1 2:00 AM EDT INTRAORAL - COMPLETE SERIES OF RADIOGRAPHIC IMAGES Routine 04/02/2022 12:00 AM EDT PERIODIC ORAL EVALUATION - ESTABLISHED PATIENT Routine 04/25/2017 12:00 AM EDT from Last 3 Months or Most Recently Relevant to Health Maintenance Results * (ABNORMAL) Hepatitis C Antibody with Reflex to HCV, RNA, Quantitative, Real- Time PCR (04/30/2024 12:40 PM EDT) Hepatitis C Antibody Reactive( A) Nonreactive [facility] Comment:Presumptive evidence of antibodies to HCV. Blood Venous blood specimen / Unknown 04/30/2024 12:40 PM EDT 04/30/2024 1:18 PM EDT Caitlin Peterson MD LAB BLOOD ORDERABLES Final Res ult [facility] [address] [place] [phone] * HIV-1/2 Antigen and Antibodies, Fourth Generation, with Reflexes (04/30/2024 12:40 PM EDT) HIV AB/AG Nonreactive Nonreactive [facility] Comment:HIV-1 p24 Ag and/or HIV-1/HIV-2 Ab not detected.A test result that is nonreactive does not exclude thepossibility of exposure to or infection with HIV-1 and/orHIV-2. Nonreactive results in this assay for individualswith prior exposure to HIV-1 and/or HIV-2 may be due toantigen and antibody levels that are below the limit ofdetection of this assay.The [employer] HIV Ag/Ab Combo assay result andsupplemental assay results should be interpreted inconjunction with the patient's clinical presentation,history and other laboratory results. If the results areinconsistent with clinical evidence, additional testing issuggested to confirm the result. Blood Venous blood specimen / Unknown 04/30/2024 12:40 PM EDT 04/30/2024 1:18 PM EDT us Caitlin Peterson MD LAB BLOOD ORDERABLES Final Res ult [facility] [address] [place] [phone] * Lipid Panel, Standard (11/22/2022 2:28 PM EDT) Cholesterol, Total 137 <200 mg/dL [facility] HDL Cholesterol 44 > OR = 40 mg/dL [facility] Triglycerides 58 <150 mg/dL [facility] LDL Cholesterol 80 mg/dL (calc) [facility] Comment: Reference range: <100 Desirable range <100 mg/dL for primary prevention; ?? <70 mg/dL for patients with CHD or diabetic patients with > or = 2 CHD risk factors. LDL-C is now calculated using the Blanca calculation, which is a validated novel method providing better accuracy than the Friedewald equation in the estimation of LDL-C. Dany VALLECILLO et al. LARS. 2013;310(19): 8416-0294 (http://education.Click4Care/faq/XCB019) Chol/HDLC Ratio 3.1 <5.0 (calc) [facility] Non-HDL Cholesterol 93 <130 mg/dL (calc) [facility] Comment: For patients with diabetes plus 1 major ASCVD risk factor, treating to a non-HDL-C goal of <100 mg/dL (LDL-C of <70 mg/dL) is considered a therapeutic option. 11/22/2022 2:28 PM EDT 11/22/2022 2:28 PM EDT Narrative [facility] - 11/25/2022 2:58 PM EDT FASTING:NO FASTING: NO Carlo Rawls MD LAB BLOOD ORDERABLES Final Resul t [facility] [address], [place] [address] [facility] [address] [place] [phone] from Last 3 Months or Most Recently Relevant to Health Maintenance [facility] MEDICAID STAND ADULT Care Teams Machine Cloth Measurer Relationship Specialty Start Date End Date Name, MD Carlo [address] [place] [address] PCP - General Family Medicine 12/12/15
--- OUTSIDE RECORDS SUMMARY | 2024-10-15 12:24 | XMS_ITS | Encounter Summary ---
Author Organization [employer] Address [address] [place] [address] 7t [place] [address] Care Team Providers Care Video And Sound Recorder Name Role Phone Name, Carlo KHAN Primary Care Provider [phone] Encounter Details Date Type Department Care Team (Late st Contact Info) Description 02/17/2024 Telephone [facility] [address] [place], [place] [phone] Name, MD Carlo [address] [place] [address] Social History Tobacco Use Types Packs/Day Years Used Date Smoking Tobacco: Never Assessed Sex and Gender Information Value Date Recorded Sex Assigned at Male 06/24/2022 10:17 AM EDT Legal Sex Male 10:17 AM EDT Gender Identity Male 06/24/2022 10:17 AM EDT Sexual Orientation Choose not to disclose 2021 10:17 AM EDT documented as of this encounter Miscellaneous Notes * Telephone Encounter - Eliot Pearce - 02/17/2024 3:39 PM EDT Tc from pt called in requesting to reschedule PE. Biology Internship was going to offer 05/24 but call dropped. documented in this encounter Plan of Treatment Upcoming Encounters Date Type Department Care Team (Late st Contact Info) Description 11/02/2024 1:30 PM EDT Office Visit [facility] ADULT DENTAL [address] [place] [address] Ilir Reed DDS [address] [place] [address] 12/24/2024 11:00 AM EDT Office Visit [facility] [address] [place] [address] Name, MD Carlo [address] [place] [address] documented as of this encounter Visit Diagnoses Not on filedocumented in this encounter Care Teams Video And Sound Recorder Relationship Specialty Start Date End Date Name, MD Carlo [address] [place] [address] PCP - General Family Medicine 12/12/15 documented as of this encounter
--- OUTSIDE RECORDS SUMMARY | 2024-10-15 12:24 | XMS_ITS | Encounter Summary ---
Author Organization [facility] [employer] [facility] Address [address] [place] [address] 7 [place] [address] Care Team Providers Care Steel Rigger Name Role Phone Name, Carlo KHAN Primary Care Provider Reason for Visit * Reason Comments Pre-visit Planning Pre visit planning L VM Encounter Details Date Type Department Care Team (Late st Contact Info) Description 09/20/2024 Patient Outreach [facility] [address] [place] [address] Name, MD Carlo [address] [place] [address] Pre-visit Planning (Pre visit planning LVM ) Social History Tobacco Use Types Packs/Day Years [...] as of this encounter Progress Notes * Delfino Pretty - 09/20/2024 11:58 AM EST CC Delfino Scott placed outbound call to patient to complete pre-visit planning. No answer at this time.Patient name and were not confirmed. CC left voicemail requesting return call. Direct contact information provided. documented in this encounter Plan of Treatment Upcoming Encounters Date Type Department Care Team (Late st Contact Info) Description 11/02/2024 1:30 PM EDT Office Visit [facility] [address] [place] [address] Ilir Reed, MABELS [address] [place] [address] 12/24/2024 11:00 AM EDT Office Visit [facility] [address] [place] [address] Name, MD Carlo [address] [place] [address] documented as of this encounter Visit Diagnoses Not on filedocumented in this encounter Care Teams Steel Rigger Relationship Specialty Start Date End Date Name, MD Carlo [address] [place] [address] PCP - General Family Medicine 12/12/15 documented as of this encounter
--- OUTSIDE RECORDS SUMMARY | 2024-10-15 12:24 | XMS_ITS | Encounter Summary ---
Author Organization [facility] [employer] [facility] Address [address] [place] [address] [address] [address] Care Team Providers Care Family Practice Physician Assistant Name Role Phone Name, Carlo KHAN Primary Care Provider [phone] Encounter Details Date Type Department Care Team (Latest Contact Info) Description 04/02/2022 Abstract [facility] CONVERSIONS Dental, Provider, DDS Social History Tobacco Use Types Packs/Day Years Used Date Smoking Tobacco: Never Assessed Sex and Gender Information Value Date Recorded Sex Assigned at Male 06/24/2022 10:17 AM EDT Legal Sex Male 10:17 AM EDT Gender Identity Male 06/24/2022 10:17 AM EDT Sexual Orientation Choose not to disclose 2021 10:17 AM EDT documented as of this encounter Plan of Treatment Upcoming Encounters Date Type Department Care Team (Late st Contact Info) Description 11/02/2024 1:30 PM EDT Office Visit [facility] ADULT DENTAL [address] [place] [address] Ilir Reed DDS [address] [place] [address] 12/24/2024 11:00 AM EDT Office Visit [facility] MED[facility] [address] [place] [address] NameCarlo MD [address] [place] [address] documented as of this encounter Visit Diagnoses Not on filedocumented in this encounter Care Teams Family Practice Physician Assistant Relationship Specialty Start Date End Date Name, MD Carlo [address] [place] [address] PCP - General Family Medicine 12/12/15 documented as of this encounter
--- OUTSIDE RECORDS SUMMARY | 2024-10-15 12:24 | XMS_ITS | Encounter Summary ---
Author Organization [facility] [employer] [facility] Address [address] [place] [address] [address] [place] [address] Care Team Providers Care Cafe Lead Name Role Phone Name, Carlo KHAN Primary Care Provider [phone] Encounter Details Date Type Department Care Team (Late st Contact Info) Description 09/23/2022 Orders Only [facility] [address] [place] [address] Bre Shafer LPN Social History Tobacco Use Types Packs/Day Years [...] Description 11/02/2024 1:30 PM EDT Office Visit [facility] ADULT D[facility]AL [address] [place] [address] Ilir Reed DDS [address] [place] [address] 12/24/2024 11:00 AM EDT Office Visit [facility] [address] [place] [address] Name, MD Carlo [address] [place] [address] documented as of this encounter Visit Diagnoses Not on filedocumented in this encounter Care Teams Cafe Lead Relationship Specialty Start Date End Date Name, MD Carlo [address] [place] [address] PCP - General Family Medicine 12/12/15 documented as of this encounter
--- OUTSIDE RECORDS SUMMARY | 2024-10-15 12:24 | XMS_ITS | Encounter Summary ---
Author Organization [employer] Address [address] [facility] [address] [place] [address] Care Team Providers Care Insole Tack Puller Hand Name Role Phone Name, Carlo KHAN Primary Care Provider [phone] Reason for Visit * Reason Onset Date Comments November Recalls 10/14/2024 Encounter Details Date Type Department Care Team (Late st Contact Info) Description 10/14/2024 Telephone [facility] [address] [place], [place] [phone] Kayy Gould [place] November Recalls Social History Tobacco Use Types Packs/Day Years Used Date Smoking Tobacco: Former Cigarettes Smokeless Tobacco: Never Alcohol Use Standard Drinks/Week [...] encounter Miscellaneous Notes * Telephone Encounter - Kayy Gould MA - 10/14/2024 1:20 PM EST Telephone call to patient to schedule a recall appointment. No answer, Left voicemail to return call to clinic.. Recall letter sent. Visit type: Follow up Appointment notes: labs ordered Month due: November With: Name Please schedule appointment above if patient returns call documented in this encounter Plan of Treatment Upcoming Encounters Date Type Department Care Team (Late st Contact Info) Description 11/02/2024 1:30 PM EDT Office Visit [facility]ULT D[facility] [address] [place] [address] Ilir Reed DDS [address] [place] [address] 12/24/2024 11:00 AM EDT Office Visit [facility] [address] [place] [address] Carlo Rawls MD [address] [place] [address] documented as of this encounter Visit Diagnoses Not on filedocumented in this encounter Additional Health Concerns Assessment Noted Time PHQ-9 Depression Total Score: 9 10/01/19 25 10:43 AM EST documented as of this encounter Care Teams Insole Tack Puller Hand Relationship Specialty Start Date End Date Carlo Rawls MD [address] [place] [address] PCP - General Family Medicine 12/12/15 documented as of this encounter
[2024-10-15 13:20] LABS: MANUAL DIFF FLAG NO
[2024-10-15 13:28] LABS: Basophils Absolute Auto 0.1 X10*3/uL (0.0-0.2); Basophils Percent Auto 1.5 % (0-2); Eosinophils Absolute Auto 0.1 X10*3/uL (0.0-0.4); Eosinophils Percent Auto 1.9 % (0-4); Hematocrit 39.6 % (42.0-52.0); Imm Gran Abs Auto 0.02 X10*3/uL (0.00-0.03); Imm Gran Pct Auto 0.3 % (0.0-0.4); Lymphocytes Absolute Auto 1.4 X10*3/uL (1.2-4.9); Lymphocytes Percent Auto 24.1 % (20-40); Mean Corpuscular HGB Conc 32.8 g/dl (31.0-36.0); Mean Corpuscular Hemoglobin 30.2 pg (27.0-33.0); Mean Corpuscular Volume 91.9 fL (80.0-98.0); Mean Platelet Volume 10.1 fL (9.4-12.4); Monocytes Absolute Auto 0.7 X10*3/uL (0.1-1.2); Monocytes Percent Auto 11.4 % (2-11); Neutrophils Absolute Auto 3.6 x10*3/uL (2.0-8.3); Neutrophils Percent Auto 60.8 % (45-73); Platelet Count 286 X10*3/uL (160-400); Red Blood Count 4.31 X10*6/uL (4.60-5.80); Red Cell Distribution Width 12.5 % (11.0-16.0); White Blood Count 5.9 X10*3/uL (4.8-10.8)
[2024-10-15 14:02] LABS: HIV AB/AG Nonreactive (Nonreactive); HIV Num 1 0.07 S/CO (0.00-0.99)
[2024-10-15 14:39] LABS: Alanine Aminotransferase 54 U/L (0-40); Albumin Level 4.1 g/dL (3.5-5.0); Alkaline Phosphatase 100 U/L (39-117); Anion Gap 11 (12-20); Aspartate Amino Transferase 53 U/L (5-37); Bilirubin Total 0.3 mg/dL (0.0-1.0); Blood Urea Nitrogen 16 mg/dL (9-16); Calcium 9.5 mg/dL (8.4-10.2); Carbon Dioxide 26 mmol/L (22-29); Chloride 106 mmol/L (96-108); Estimated Glomerular Filt Rate > 60; Glucose Random 107 mg/dL (60-115); Potassium 4.4 mmol/L (3.3-5.1); Sodium 139 mmol/L (135-145); Total Protein 8.2 g/dL (6.5-8.0)
[2024-10-15 14:42] LABS: TSH reflex Free T4 1.42 uIU/mL (0.32-4.0)
[2024-10-16 20:59] LABS: HCV Log PCR <1.18 NOT DETECTED Log IU/mL (NOT DETECTED); HepC Viral Load <15 NOT DETECTED IU/mL (NOT DETECTED)
== END 2024-10-15 11:17 | disposition home or self-care (01) ==
LOC: HO.HHCL 11:16
PROVIDERS: Visit Provider Internal Medicine Geriatric Medicine
DX: R63.4 Abnormal weight loss (principal)
CPT/HCPCS: 36415; 80053; 84443; 85025; 87389; 87522

== ENCOUNTER 2025-01-03 14:28 | Outpatient (REF) | payer MEDICAID, SELFPAY ==
--- NOTE | ~2025-01-03 | XR_ITS ---
EXAMINATION: XR CHEST 2 VIEWS HISTORY: Weight loss and cough in a smoker COMPARISON: There are no prior studies for comparison. FINDINGS: PA and lateral views of the chest are submitted. The lungs are hyperinflated, consistent with COPD. The lungs are clear. There is no pleural effusion, pneumothorax, or pulmonary vascular congestion. The heart is normal in size. The bones are intact. XR/XR chest 2V IMPRESSION: COPD. The lungs are clear. Electronically signed by: Willian Lorenzo MD 01/03/2025 02:55 PM EDT
--- OUTSIDE RECORDS SUMMARY | 2025-01-03 14:38 | XMS_ITS | Clinical Summary ---
Author Organization [facility] Address [address] [place] [address] Phone Care Team Providers Care Football Pad Repairer Name Role Phone Name, Carlo KHAN Primary Care Provider [phone] Allergies No known active allergies Medications albuterol [...] for 10 days. 40 each 08/05/2024 Active Social History Tobacco Use Types Packs/Day Years [...] - 2023-2 5 season) 2024 Influenza Vaccine (Season Ended) 2025 07/29/2013 Cholesterol Screening (Lipid Panel) 11/23/2027 11/22/2022 [...] age to complete this topic Meningococcal B Vaccine Aged Out No l onger eligible based on patient's age to complete this topic RSV Immunization Patients Under 20 months Aged Out No longer eligible b ased on patient's age to complete this topic Varicella Vaccines Aged Out No longer eligible based on patient's age to complete this topic Insurance [place]ICAID - [place] Care Teams Football Pad Repairer Relationship Specialty Start Date End Date Name, MD Carlo [address] [place] [address] PCP - General Internal Medicine 08/05/24
--- OUTSIDE RECORDS SUMMARY | 2025-01-03 14:38 | XMS_ITS | Encounter Summary ---
Author Organization [employer] Address [address] [facility] 7t [place] [address] Care Team Providers Care Yoghurt Maker Name Role Phone Name, Carlo KHAN Primary Care Provider [phone] Reason for Visit * Reason Onset Date Comments Nurse Triage 04/12/2024 Encounter Details Date Type Department Care Team (Late st Contact Info) Description 04/12/2024 Telephone [facility]INE [address] [place], [place] [phone] Name, MD Carlo [address] [place] [address] Nurse Triage Social History Tobacco Use Types [...] and vegetables. Drinks adequate liquids but, did drinka couple of beers the other night and didn't feel well after. Pt is given ASK apt with ENERGY PROJECT MANAGER Felipe 04/19/24 @ 100pm . Pt agrees [...] Care Team (Late st Contact Info) Description 02/01/2025 2:30 PM EDT Office Visit [facility] ADULT DENTAL [address] [place] [address] Ilir Reed DDS [address] [place] [address] 04/20/2025 11:15 AM EDT Office Visit [facility] [address] [place] [address] NameCarlo MD [address] [place] [address] documented as of this encounter Visit Diagnoses Not on filedocumented in this encounter Care Teams Yoghurt Maker Relationship Specialty Start Date End Date Name, MD Carlo [address] [place] [address] PCP - General Family Medicine 12/12/15 documented as of this encounter
--- OUTSIDE RECORDS SUMMARY | 2025-01-03 14:39 | XMS_ITS | Encounter Summary ---
Author Organization [employer] [facility] Address [address] [facility] 7t [place] [address] Care Team Providers Care Team Facilitator Name Role Phone Name, Carlo KHAN Primary Care Provider [phone] Encounter Details Date Type Department Care Team (Late st Contact Info) Description 09/23/2022 Orders Only [facility] MEDICINE [address] [place] [phone] Bre Shafer LPN Social History Tobacco Use [...] Description 02/01/2025 2:30 PM EDT Office Visit [facility] ADULT DENTAL [address] [place] [address] Ilir Reed DDS [address] [place] [address] 04/20/2025 11:15 AM EDT Office Visit [facility] MED[facility]INE [address] [place] [address] Name, MD Carlo [address] [place] [address] documented as of this encounter Visit Diagnoses Not on filedocumented in this encounter Care Teams Team Facilitator Relationship Specialty Start Date End Date Name, MD Carlo [address] [place] [address] PCP - General Family Medicine 12/12/15 documented as of this encounter
--- OUTSIDE RECORDS SUMMARY | 2025-01-03 14:39 | XMS_ITS | Encounter Summary ---
Author Organization [employer] Address [address] [facility] 7t [place] [address] Care Team Providers Care Paint Roller Covers Supervisor Name Role Phone Name, Carlo KHAN Primary Care Provider [phone] Reason for Visit * Reason Comments Follow-up Encounter Details Date Type Department Care Team ([facility] st Contact Info) Description 01/03/2025 1:30 PM EDT Office Visit [facility] [address] [place], [place] [phone] Name, MD Carlo [address] [place] [address] Asthma, unspecified asthma severity, unspecified whether complicated, unspecified whether persistent (Primary Dx); Screen for colon cancer; Screening for colon cancer Social History Tobacco Use Types Packs/Day Years Used Date Smoking Tobacco: Every Day Cigarettes Smokeless Tobacco: Never Tobacco Cessation:Counseling Given: [...] Sign Reading Time Taken Comments Blood Pressure 113/70 01/03/2025 1:44 PM EDT Pulse 62 01/03/2025 1:44 PM EDT Temperature 36.1 ??C (96.9 ??F) 01/03/2025 1:44 PM ED T Respiratory Rate 16 01/03/2025 1:44 PM EDT Oxygen Saturation 94% 01/03/2025 1:44 PM EDT Inhaled Oxygen Concentration - - Weight 74.8 kg (164 lb 12.8 oz) 01/03/2025 1:44 PM EDT Height 180.3 cm (5' 11 ) 01/03/2025 1:44 PM EDT Body Mass Index 22.98 01/03/2025 1:44 PM EDT documented in this encounter Plan of Treatment Upcoming Encounters Date Type Department Care Team (Late st Contact Info) Description 02/01/2025 2:30 PM EDT Office Visit [facility] D[facility] [address] [place] [address] Ilir Reed DDS [address] [place] [address] 04/20/2025 11:15 AM EDT Office Visit [facility] [address] [place] [address] Name, MD Carlo [address] [place] [address] Scheduled Orders Name Type Priority Associated Diagnoses Orde r Schedule Cologuard?? colon cancer screening Lab Routine Screening for colon cancer Ordered: 01/03/2025 documented as of this encounter Visit Diagnoses Diagnosis Asthma, unspecified asthma severity, unspecified whether complicated, unspecified whether persistent- Primary Screen for colon cancer Special screening for malignant neoplasms, colon Screening for colon cancer Special screening for malignant neoplasms, colon documented in this encounter Additional Health Concerns Assessment Noted Time PHQ-9 Depression Total Score: 9 10/01/19 25 10:43 AM EST documented as of this encounter Care Teams Paint Roller Covers Supervisor Relationship Specialty Start Date End Date Name, MD Carlo [address] [place] [address] PCP - General Family Medicine 12/12/15 documented as of this encounter
--- OUTSIDE RECORDS SUMMARY | 2025-01-03 14:39 | XMS_ITS | Encounter Summary ---
Author Organization [email or web address] Address [address] [facility] 7t [place] [address] Care Team Providers Care Returning Officer Name Role Phone Name, Carlo KHAN Primary Care Provider [phone] Reason for Visit * Reason Onset Date Comments Medication Question 02/17/2024 Encounter Details Date Type Department Care Team (Late st Contact Info) Description 02/17/2024 Telephone [facility] [address] [place], [place] [phone] Name, MD Carlo [address] [place], [place] [phone] Medication Question Social History Tobacco Use Types [...] No answer. LVM to call back on [phone]. * Telephone Encounter - Eliot Pearce - 02/17/2024 3:32 PM EDT Tc from pt is requesting albuterol nebulizer solution for machine due to some recent concerns. Please contact pt at [phone]. documented in this encounter Plan of Treatment Upcoming Encounters Date Type Department Care Team (Late st Contact Info) Description 02/01/2025 2:30 PM EDT Office Visit [facility]ULT [facility] [address] [place] [address] Ilir Reed DDS [address] [place] [address] 04/20/2025 11:15 AM EDT Office Visit [facility] [address] [place] [address] Name, MD Carlo [address] [place] [address] documented as of this encounter Visit Diagnoses Not on filedocumented in this encounter Care Teams Returning Officer Relationship Specialty Start Date End Date Name, MD Carlo [address] [place] [address] [phone] PCP - General Family Medicine 12/12/15 documented as of this encounter
--- OUTSIDE RECORDS SUMMARY | 2025-01-03 14:39 | XMS_ITS | Encounter Summary ---
Author Organization [employer] Address [address] [facility] 7t [place] [address] Care Team Providers Care Protective Clothing Issuer Name Role Phone Name, Carlo KHAN Primary Care Provider [phone] Encounter Details Date Type Department Care Team (Latest Contact Info) Description 01/03/2025 Travel Social History Tobacco Use Types Packs/Day Years Used Date Smoking Tobacco: Every Day Cigarettes Smokeless Tobacco: Never Alcohol Use Standard [...] Description 02/01/2025 2:30 PM EDT Office Visit [facility] ADULT DENT[facility] [address] [place] [address] Ilir Reed DDS [address] [place] [address] 04/20/2025 11:15 AM EDT Office Visit [facility] [address] [place] [address] NameCarlo MD [address] [place] [phone] documented as of this encounter Visit Diagnoses Not on filedocumented in this encounter Additional Health Concerns Assessment Noted Time PHQ-9 Depression Total Score: 9 10/01/19 25 10:43 AM EST documented as of this encounter Care Teams Protective Clothing Issuer Relationship Specialty Start Date End Date NameCarlo MD [address] [place] [phone] PCP - General Family Medicine 12/12/15 documented as of this encounter
--- OUTSIDE RECORDS SUMMARY | 2025-01-03 14:39 | XMS_ITS | Encounter Summary ---
Author Organization [employer] Address 75 [facility] 7t [place] [address] Care Team Providers Care Checkering Machine Operator Name Role Phone Name, Carlo KHAN Primary Care Provider [phone] Encounter Details Date Type Department Care Team (Late st Contact Info) Description 02/17/2024 Telephone [facility] [address] [place] [address] [phone] Name, MD Carlo [address] [place] [address] Social History Tobacco Use Types Packs/Day Years [...] pt called in requesting to reschedule PE. Soaking Pits Supervisor was going to offer 05/24 but call dropped. documented in this encounter Plan of Treatment Upcoming Encounters Date Type Department Care Team (Late st Contact Info) Description 02/01/2025 2:30 PM EDT Office Visit [facility] ADULT DENTAL [address] [place], [place] [phone] Ilir Reed DDS [address] [place] [address] 04/20/2025 11:15 AM EDT Office Visit [facility] [address] [place] [address] Name, MD Carlo [address] [place] [address] documented as of this encounter Visit Diagnoses Not on filedocumented in this encounter Care Teams Checkering Machine Operator Relationship Specialty Start Date End Date Name, MD Carlo [address] [place] [address] PCP - General Family Medicine 12/12/15 documented as of this encounter
--- OUTSIDE RECORDS SUMMARY | 2025-01-03 14:39 | XMS_ITS | Encounter Summary ---
Author Organization [employer] [facility] Address [address] [place] [address] 7t [place] [address] Care Team Providers Care Driver Courier Name Role Phone Name, Carlo KHAN Primary Care Provider [phone] Encounter Details Date Type Department Care Team (Latest Contact Info) Description 04/02/2022 Abstract [facility] CON[facility] Dental, Provider, DDS Social History [...] Description 02/01/2025 2:30 PM EDT Office Visit [facility] ADULT DENTAL [address] [place] [address] Ilir Reed DDS [address] [place] [address] 04/20/2025 11:15 AM EDT Office Visit [facility] [address] [place] [address] Name, MD Carlo [address] [place] [address] documented as of this encounter Visit Diagnoses Not on filedocumented in this encounter Care Teams Driver Courier Relationship Specialty Start Date End Date Carlo Rawls MD [address] [place] [address] PCP - General Family Medicine 12/12/15 documented as of this encounter
--- OUTSIDE RECORDS SUMMARY | 2025-01-03 14:39 | XMS_ITS | Clinical Summary ---
Author Organization [email or web address] Address [address] [facility] 7t [place] [address] Care Team Providers Care Feather Edger Name Role Phone Name, Carlo KHAN Primary Care Provider [phone] Allergies No known active allergies Medications albuterol (2.5 MG/3ML) 0.083% nebulizer solution INHALE 1 VIAL VIA NEBULIZER 3 TIMES A DAY 90 mL 2 4 Active methadone (Methadose) 10 MG/ML solution 41 mg. 2 Active naproxen (Naprosyn) 500 MG tablet Take 500 mg by mouth if needed in the morning and at bedtime. 3 Active albuterol (Ventolin HFA) 108 (90 Base) MCG/ACT inhalerIndicati ons:Asthma, unspecified asthma severity, unspecified whether complicated, unspecified whether persistent INHALE 2 PUFFS INTO THE LUNGS EVERY 4 TO 6 HOURS NEEDED. 18 g 1 4 Active albuterol 108 (90 Base) MCG/ACT inhalerIndicati ons:Wheezing Inhale 2 puffs every 6 (six) hours if needed for wheezing. 18 g 5 026 Active gabapentin (Neurontin) 300 MG capsule Take 1 capsule (300 mg) by mouth 2 times daily. 60 capsule 5 026 Active albuterol 108 (90 Base) MCG/ACT inhaler Inhale 2 puffs every 6 (six) hours if needed for wheezing. 18 g 5 026 Active fluticasone furoate (Arnuity Ellipta) 200 MCG/ACT inhaler Inhale 1 puff Once per day. Rinse mouth with water after use to reduce aftertaste and incidence of candidiasis. Do not swallow. 1 each 5 026 Active gabapentin (Neurontin) 100 MG capsule Take 1 capsule (100 mg) by mouth at bedtime. 30 capsule 1 5 025 Discontinu ed(Dose adjustment ) amoxicillin-cla vulanate (Augmentin) 875-125 MG tablet Take 1 tablet by mouth 2 times daily for 7 days. 14 tablet 5 025 ibuprofen 600 MG tablet Take 1 tablet (600 mg) by mouth every 8 (eight) hours if needed for mild pain for up to 7 days. 21 tablet 5 025 acetaminophen (Tylenol) 500 MG tablet Take 1 tablet (500 mg) by mouth every 8 (eight) hours if needed for mild pain for up to 7 days. 21 tablet 5 025 Active Problems Problem Noted Date Diagnosed [...] Encounters Date Type Department Care Team Description 01/03/2025 1:30 PM EDT Office Visit [address] [address] Name, MD Carlo Asthma, unspecified asthma severity, unspecified whether complicated, unspecified whether persistent (Primary Dx); Screen for colon cancer; Screening for colon cancer 01/03/2025 Travel 12/22/[address] [place] [address] Estrella Dominguez [place] Chart Prep 12/17/2024 1:30 PM EDT Office Visit [facility] ADULT DENTAL [address] [place] [address] Ilir Reed, DDS 11/05/2024 Population Health Risk Score [facility] () Department [address] [place] [phone] Provider, Population Health Generic 11/02/2024 3:00 PM EDT Office Visit [facility] ADULT [facility] [address] [place] [address] Carina Mcgrath Periodontal disease (Primary Dx); Dental calculus 11/02/2024 1:30 PM EDT Office Visit [facility] ADULT D[facility] [address] [place] [address] Ilir Reed, DDS 11/02/2024 Telephone [facility] [address] [place] [phone] Carlo Rawls MD Medication Question (Patient walked in stating medication gabapentin is not doing anything. He would like medication to be changed. ) 10/14/[address] [address] Kayy Gould [place] November Recalls from Last 3 Months Immunizations Name Administration Dates Next Due Influenza, Split (incl. purified surface antigen ) 07/29/2013 MMR 11/24/2003 Tdap 06/17/2024,07/29/2013 Social History Tobacco Use Types Packs/Day Years [...] Mass Index 22.98 01/03/2025 1:44 PM EDT Plan of Treatment Upcoming Encounters Date Type Department Care Team (Late st Contact Info) Description 02/01/2025 2:30 PM EDT Office Visit [facility] ADULT D[facility] [address] [place] [address] Ilir Reed DDS [address] [place], [place] [phone] 04/20/2025 11:15 AM EDT Office Visit [facility] [address] [place] [address] [phone] Name, MD Carlo [address] [place] [address] [phone] Health Maintenance Due Date Last Done Comments CT Colonography 1970 Colonoscopy 1970 Colorectal Cancer Screening 1970 FIT DNA/Cologuard 1970 FIT 1970 FOBT 1970 Sigmoidoscopy 1970 Hepatitis B Vaccines (1 of 3 - 19+ 3-dose series) 1989 Pneumococcal Vaccine: 50+ Years (1 of 2 - PCV) 1989 Zoster Vaccines (1 of 2) 2020 COVID-19 Vaccine (1 - season) 2024 Influenza Vaccine (#1) 2024 07/29/2013 Dental X-Ray: Full Mouth 04/03/2025 022, 04/25/2017, 06/24/2013, Additional history exists Dental Oral Exam 05/06/2025 11/02/2024, 08/2016, 10/22/2013, Additional history exists Dental Prophylaxis 05/06/2025 11/02/2024, 0 04/02/2022, 06/24/2013, Additional history exists Alcohol/Substance Use Screening 10/01/2025 10/01/2024 Depression Screening 10/01/2025 10/01/2024, 10/01/19 25 SDOH Screening 10/01/2025 10/01/2024 Dental X-Ray: Bitewings 11/03/2025 11/03/19 25, 04/02/2022, 04/25/2017, Additional history exists Tobacco Screening 01/03/2026 01/03/2025 Lipid Panel 11/23/2027 11/22/2022 DTaP/Tdap/Td Vaccines (3 - Td or Tdap) 06/17/2034 06/17/2024, 07/29/2013 RSV Patients and Patients Aged 60 years or older (1 - 1-dose 75+ series) 2045 HIV Screening Completed 10/15/2024, 01/2024, 11/22/2022 Hepatitis C Screening Completed 10/15/2024 , 04/30/2024, 04/30/2024, Additional history exists HIB Vaccines Aged Out No longer eligi ble based on patient's age to complete this topic HPV Vaccines Aged Out No longer eligi ble based on patient's age to complete this topic Hepatitis A Vaccines Aged Out No long er eligible based on patient's age to complete [...] Procedure Name Priority Date/Time Associated Diagnosis Comments CASE PRESENTATION, DETAILED AND EXTENSIVE TREATMENT PLANNING Routine 12/17/2024 1:30 PM EDT 31 ENDODONTIC THERAPY, MOLAR TOOTH Routine 12/17/2024 1:30 PM EDT CASE PRESENTATION, DETAILED AND EXTENSIVE TREATMENT PLANNING Routine 11/02/2024 3:00 PM EDT Periodontal disease Dental calculus PROPHYLAXIS - ADULT Routine 11/02/2024 3 :00 PM EDT Periodontal disease Dental calculus COMPREHENSIVE PERIODONTAL EVALUATION - NEW OR ESTABLISHED PATIENT Routine 11/02/2024 1:30 PM EDT INTRAORAL - PERIAPICAL EACH ADDITIONAL RADIOGRAPHIC IMAGE Routine 11/02/2024 1:30 PM EDT INTRAORAL - PERIAPICAL EACH ADDITIONAL RADIOGRAPHIC IMAGE Routine 11/02/2024 1:30 PM EDT INTRAORAL - PERIAPICAL FIRST RADIOGRAPHIC IMAGE Routine 11/02/2024 1:30 PM EDT BITEWINGS - 4 RADIOGRAPHIC IMAGES Routine 11/02/2024 1:30 PM EDT PERIODIC ORAL EVALUATION - ESTABLISHED PATIENT Routine 11/02/2024 1:30 PM EDT HEPATITIS C VIRAL RNA, QUANTITATIVE, REAL-TIME PCR Routine 10/15/2024 11:19 AM EST Weight loss HIV 1/2 ANTIGEN/ANTIBODY, FOURTH GENERATION W/RFL Routine 10/15/2024 11:19 AM EST Weight loss TSH W/REFLEX TO FT4 Routine 10/15/2024 1 1:19 AM EST Weight loss COMPREHENSIVE METABOLIC PANEL Routine 10/15/2024 11:19 AM EST Weight loss CBC WITH AUTO DIFFERENTIAL Routine 10/15/2024 11:19 AM EST Weight loss LIPID PANEL, STANDARD Routine 11/22/2022 2:28 PM EDT INTRAORAL - COMPLETE SERIES OF RADIOGRAPHIC IMAGES Routine 04/02/2022 12:00 AM EDT from Last 3 Months or Most Recently Relevant to Health Maintenance Results * TSH W/Reflex to FT4 (10/15/2024 11:19 AM EST) TSH reflex Free T4 1.42 0.32 - 4.0 uIU/mL [facility] Blood Venous blood specimen / Unknown 10/15/2024 11:19 AM EST 10/15/2024 1:06 PM EST us Carlo Rawls MD LAB BLOOD ORDERABLES Final Resul t [facility] [address] [place] [phone] * Hepatitis C Viral RNA, Quantitative, Real-Time PCR (10/15/2024 11:19 AM EST) Hepatitis C Viral Load <15 NOT DETECTED NOT DETECTED IU/mL [facility] HCV Log PCR <1.18 NOT DETECTED NOT DETECTED Log IU/mL [facility] Comment:For additional infor mation, please refer tohttp://education.Chronicity/faq/PQL33u7(This link is being provided for informational/educational purposes only.)THIS TEST WAS PERFORMED AT:[facility] [place] [phone] CHURCH MD Blood Venous blood specimen / Unknown 10/15/2024 11:19 AM EST 10/15/2024 1:06 PM EST us Carlo Name LAB BLOOD ORDERABLES Final Resul t [facility] [address] [place] [address] [phone] * (ABNORMAL) CBC auto differential (10/15/2024 11:19 AM EST) White Blood Count 5.9 4.8 - 10.8 X10*3/uL [facility] Red Blood Count 4.31(L) 4.60 - 5.80 X10*6/uL [facility] Hemoglobin 13.0(L) 14.0 - 18.0 g/dl [facility] Hematocrit 39.6(L) 42.0 - 52.0 % [facility] Mean Corpuscular Volume 91.9 80.0 - 98.0 fL [facility] Mean Corpuscular Hemoglobin 30.2 27.0 - 33.0 pg [facility] Mean Corpuscular HGB Conc 32.8 31.0 - 36.0 g/dl [facility] Red Cell Distribution Width 12.5 11.0 - 16.0 % [facility] Platelet Count 286 160 - 400 X10*3/uL [facility] Mean Platelet Volume 10.1 9.4 - 12.4 fL [facility] Neutrophils Percent Auto 60.8 45 - 73 % [facility] Imm Gran Pct Auto 0.3 0.0 - 0.4 % [facility] Lymphocytes Percent Auto 24.1 20 - 40 % [facility] Monocytes Percent Auto 11.4(H) 2 - 11 % [facility] Eosinophils Percent Auto 1.9 0 - 4 % [facility] Basophils Percent Auto 1.5 0 - 2 % [facility] NRBC Pct Auto 0.0 0.0 - 0.2 /100WBC [facility] Neutrophils Absolute Auto 3.6 2.0 - 8.3 x10*3/uL [facility] Imm Gran Abs Auto 0.02 0.00 - 0.03 X10*3/uL [facility] Lymphocytes Absolute Auto 1.4 1.2 - 4.9 X10*3/uL [facility] Monocytes Absolute Auto 0.7 0.1 - 1.2 X10*3/uL [facility] Eosinophils Absolute Auto 0.1 0.0 - 0.4 X10*3/uL [facility] Basophils Absolute Auto 0.1 0.0 - 0.2 X10*3/uL [facility] NRBC Abs Auto 0.000 0.0 - 0.012 X10*3/uL [facility] Blood Venous blood specimen / Unknown 10/15/2024 11:19 AM EST 10/15/2024 1:06 PM EST us Carlo Rawls MD LAB BLOOD ORDERABLES Final Resul t [facility] [address] [place] [phone] [phone] * HIV-1/2 Antigen and Antibodies, Fourth Generation, with Reflexes (10/15/2024 11:19 AM EST) HIV AB/AG Nonreactive Nonreactive [facility] Comment:HIV-1 p24 Ag and/or HIV-1/HIV-2 Ab not detected.A test result that is nonreactive does not exclude thepossibility of exposure to or infection with HIV-1 and/orHIV-2. Nonreactive results in this assay for individualswith prior exposure to HIV-1 and/or HIV-2 may be due toantigen and antibody levels that are below the limit ofdetection of this assay.The Enviance HIV Ag/Ab Combo assay result andsupplemental assay results should be interpreted inconjunction with the patient's clinical presentation,history and other laboratory results. If the results areinconsistent with clinical evidence, additional testing issuggested to confirm the result. Blood Venous blood specimen / Unknown 10/15/2024 11:19 AM EST 10/15/2024 1:06 PM EST us Matos Name LAB BLOOD ORDERABLES Final Resul t [facility] [address] [place] [address] [phone] * (ABNORMAL) Comprehensive Metabolic Panel (10/15/2024 11:19 AM EST) Sodium 139 135 - 145 mmol/L [facility] Potassium 4.4 3.3 - 5.1 mmol/L [facility] Chloride 106 96 - 108 mmol/L [facility] Carbon Dioxide 26 22 - 29 mmol/L [facility] Anion Gap 11(L) 12 - 20 [facility] Urea Nitrogen (BUN) 16 9 - 16 mg/dL [facility] Creatinine, Serum 0.87 0.5 - 1.4 mg/dL [facility] Estimated Glomerular Filt Rate >60 [facility] Comment:Chronic Kidney Disea se: Estimated GFR < 60 mL/min/1.77i4Axgwwa Kidney Disease: Estimated GFR < 15 mL/min/1.73m2 Glucose 107 60 - 115 mg/dL [facility] Calcium 9.5 8.4 - 10.2 mg/dL [facility] Bilirubin, Total 0.3 0.0 - 1.0 mg/dL [facility] Aspartate Amino Transferase 53(H) 5 - 37 U/L [facility] Alanine Aminotransferase 54(H) 0 - 40 U/L [facility] Total Protein 8.2(H) 6.5 - 8.0 g/dL [facility] Albumin Level 4.1 3.5 - 5.0 g/dL [facility] Alkaline Phosphatase 100 39 - 117 U/L [facility] Blood Venous blood specimen / Unknown 10/15/2024 11:19 AM EST 10/15/2024 1:06 PM EST us Carlo Rawls MD LAB BLOOD ORDERABLES Final Resul t [facility] [address] [place] [phone] [phone] * Lipid Panel, Standard (11/22/2022 2:28 PM EDT) Cholesterol, Total 137 <200 mg/dL [email or web address] HDL Cholesterol 44 > OR = 40 mg/dL [email or web address] Triglycerides 58 <150 mg/dL [email or web address] LDL Cholesterol 80 mg/dL (calc) [email or web address] Comment: Reference range: <100 Desirable range <100 mg/dL for primary prevention; ?? <70 mg/dL for patients with CHD or diabetic patients with > or = 2 CHD risk factors. LDL-C is now calculated using the Blanca calculation, which is a validated novel method providing better accuracy than the Friedewald equation in the estimation of LDL-C. Dany SS et al. LARS. 2013;310(19): 6824-8818 (http://education.Collective/faq/ZDI781) Chol/HDLC Ratio 3.1 <5.0 (calc) [facility] [email or web address] Non-HDL Cholesterol 93 <130 mg/dL (calc) [email or web address] Comment: For patients with diabetes plus 1 major ASCVD risk factor, treating to a non-HDL-C goal of <100 mg/dL (LDL-C of <70 mg/dL) is considered a therapeutic option. 11/22/2022 2:28 PM EDT 11/22/2022 2:28 PM EDT Narrative [facility] - 11/25/2022 2:58 PM EDT FASTING:NO FASTING: NO us Carlo Rawls MD LAB BLOOD ORDERABLES Final Resul t Performing Organization Address City/[facility]/ZIP Co de Phone Number [facility] [address], [place] [address] [facility] [place] [email or web address] [address] [place] [address] from Last 3 Months or Most Recently Relevant to Health Maintenance Insurance [place] [facility] MEDICAID STAND ADULT Care Teams Feather Edger Relationship Specialty Start Date End Date Name, MD Carlo [address] [place] [id number] PCP - General Family Medicine 12/12/15
== END 2025-01-03 14:29 | disposition home or self-care (01) ==
LOC: HO.HHCX 14:28
PROVIDERS: Visit Provider Internal Medicine Geriatric Medicine
DX: R63.4 Abnormal weight loss (principal); F17.200 Nicotine dependence, unspecified, uncomplicated
CPT/HCPCS: 71046

== ENCOUNTER → 2025-01-03 14:28 | Outpatient (BNV) | payer MEDICAID, SELFPAY | PROVIDERS: Visit Provider Radiology Diagnostic Radiology | DX: J44.9 Chronic obstructive pulmonary disease, unspecified (principal) | CPT/HCPCS: 71046 ==